=== PATIENT | male | born 2005 | race Caucasian/White ===

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

== ENCOUNTER 2025-01-30 20:44 | Emergency (ER) | payer MEDICAID, SELFPAY ==
[2025-01-30 20:50] VITALS: BP 150/95; PULSE 101; RESP 18; TEMP 36.9; O2SAT 98; BMI 41.3
--- NOTE | 2025-01-30 20:50 | XRR_ITS ---
PROCEDURE INFORMATION: Exam: XR Chest Exam date and time: 01/30/2025 9:08 PM Age: 19 years old Clinical indication: Other: Weakness and neurodeficit TECHNIQUE: Imaging protocol: Radiologic exam of the chest. Views: 1 view. COMPARISON: CR XR chest 1V [id number] 04/18/2023 2:04 PM FINDINGS: Lungs: Unremarkable. No consolidation. Pleural spaces: Unremarkable. No pleural effusion. No pneumothorax. Heart/Mediastinum: Unremarkable. No cardiomegaly. Bones/joints: Unremarkable. XR/XR chest 1V portable [id number] IMPRESSION: No acute findings.
--- NOTE | 2025-01-30 20:51 | CTR_ITS ---
PROCEDURE INFORMATION: Exam: CT Head Without Contrast Exam date and time: 01/30/2025 9:00 PM Age: 19 years old Clinical indication: Stroke-like symptoms; Generalized weakness; Additional info: Symptoms of acute stroke TECHNIQUE: Imaging protocol: Computed tomography of the head without contrast. Radiation optimization: All CT scans at this facility use at least one of these dose optimization techniques: automated exposure control; mA and/or kV adjustment per patient size (includes targeted exams where dose is matched to clinical indication); or iterative reconstruction. Other technique: STROKE PROTOCOL was implemented. COMPARISON: CT head wo con* [id number] 04/28/2021 11:49 PM RADIATION DOSE METRICS: Total DLP (mGy-cm): 1221.6 FINDINGS: Brain: Normal. No hemorrhage. Unremarkable white matter. No mass effect. Cerebral ventricles: No ventriculomegaly. Paranasal sinuses: Visualized sinuses are unremarkable. No fluid levels. Mastoid air cells: Visualized mastoid air cells are well aerated. Bones: Unremarkable. No acute fracture. Soft tissues: Unremarkable. CT/CT head thrombolytic [id number] IMPRESSION: No acute intracranial abnormality. ASSESSMENT: ASPECTS ([place] Stroke Program Early CT Score) is 10.
[2025-01-30 20:54] LABS: Glucose Point of Care 103 mg/dL (70-110)
--- NOTE | 2025-01-30 20:54 | W.ED.NEUROSD ---
HPI - Neuro Symptoms/Deficit General: Chief Complaint: Neuro Symptoms/Deficit Stated Complaint: Stroke Alert Time Seen by Provider: 01/30/25 20:50 History of Present Illness: Patient presents to the ER EMS for stroke alert. EMS stated patient was at a friend's house when he started feeling weird got in his truck went to his girlfriend's house. Which was about a mile down the road got there and did not was unable to move anything from the neck down. When EMS arrived there patient was unable move all extremities but did have spontaneous eye movement and was able to talk and answer questions. Patient denies any anticoagulation. Patient says he should be on blood pressure medicine but denies taking it. Patient denies any illegal substances or alcohol use. He does smoke cigarettes. He has never had a thing like this before. Related Data Home Medications ?Medication ?Instructions ?Recorded ?Confirmed acetaminophen 500 mg tablet 1,000 mg PO Q6H PRN Pain 04/18/23 08/29/24 Previous Rx's ?Medication ?Instructions ?Recorded inhalational spacing device #1 ea 04/21/20 (Aerochamber Plus Flow-Vu) azelastine 137 mcg (0.1 %) nasal 1 spray intranasal BID #30 mL 05/31/24 spray cetirizine 10 mg tablet (Wal-Zyr 10 mg PO DAILY #30 tabs 05/31/24 (cetirizine)) metformin 500 mg tablet,extended 1,000 mg (2 x 500 mg) PO DAILY #60 05/31/24 release 24 hr tabs Held on 08/29/24. Instructions: Patient No Longer Taking valsartan 40 mg tablet (Diovan) 40 mg PO DAILY #30 tabs 08/29/24 mometasone-formoterol HFA 100 2 puff inhalation Q12H #13 grams 12/06/24 mcg-5 mcg/actuation aerosol inhaler (Dulera) Allergies Allergy/AdvReac Type Severity Reaction Status Date / Time poison sumac extract Allergy ALGY-Hives Verified 08/29/24 13:00 fenofibrate (From Tricor) AdvReac Severe ADR-Nausea Verified 08/29/24 13:00 Review of Systems General: Reports: 10 or more systems reviewed and unremarkable except in HPI and below PFSH ED PFSH: Medical History Seasonal and perennial allergic rhinitis Metabolic syndrome BMI (body mass index), pediatric, 95-99% for age Family history of diabetes mellitus in paternal grandfather Surgical History No pertinent past surgical history Family History Grandfather CAD (coronary artery disease) Diabetes Father Diabetes Hypertension Family/Other Cancer Lung cancer Social History Smoking and tobacco/nicotine status: never used tobacco/nicotine Second hand smoke exposure: Yes Alcohol intake: never Substance/Drug Use: never Adopted: No Caregiver/support person: No Lives independently: No Household members: family Housing: House Marital status: Single Number of children: 0 Highest education level completed: High School Graduate service: No Current occupational status: student Do you think of yourself as: Straight/Heterosexual Current gender identity: Male Physical Exam Const: COMMON NORMALS: no acute distress, average body habitus, patient oriented x3, healthy appearing, alert and well nourished HENMT: COMMON NORMALS: normocephalic, atraumatic, hearing grossly normal bilaterally, external ears normal, Normal external nose present, moist oral mucous membranes and oropharynx normal HEAD & SCALP: normocephalic and atraumatic NOSE: Normal external nose present EXTERNAL EAR: Yes external ears normal Eye: COMMON NORMALS: Equal, round and reactive pupils present, EOMs intact bilaterally, conjunctivae normal and no scleral icterus CONJUNCTIVA: Yes conjunctivae normal PUPIL: Yes Equal, round and reactive pupils present Neck/C-Spine: COMMON NORMALS: no JVD Chest: COMMONS NORMALS: normal inspection of the chest and normal palpation of entire chest wall Resp: COMMON NORMALS: normal respiratory effort, No retractions, No use of accessory muscles and clear to auscultation bilaterally AUSCULTATION: clear to auscultation bilaterally Cardio: COMMON NORMALS: no JVD, regular rate, regular rhythm, S1 normal heart sound present, S2 normal heart sound present, No gallops present (Cardio), No clicks present (Cardio), No murmurs present (Cardio) and No rub (Cardio) RATE: regular rate RHYTHM: regular rhythm HEART SOUNDS: S1 normal heart sound present and S2 normal heart sound present GI: COMMON NORMALS: Normal to inspection, nondistended, normoactive bowel sounds present, Soft to palpation, non-tender, No hepatosplenomegaly present and no masses PALPATION: Yes Soft to palpation and Yes No hepatosplenomegaly present Neuro: COMMON NORMALS: patient oriented x3 SENSORIUM/ORIENTATION: Yes alert Course Vital Signs: Vital signs: Vital Signs Temperature 98.5 F 01/30/25 20:50 Pulse Rate 94 01/30/25 23:25 Respiratory Rate 23 H 01/30/25 23:25 Blood Pressure 136/100 01/30/25 23:25 Pulse Oximetry 96 01/30/25 23:25 Oxygen Delivery Me thod Room Air 01/30/25 21:55 MDM - Neuro Symptoms/Deficit Medical Decision Making Dr. Andres come down in ER to evaluate patient. He says it is unlikely stroke or Guillain-Mascorro? could be periodic paralysis. He did request a CT spine cervical and CTA of the chest. He would like him placed in the ICU underneath the hospitalist for observation. Medical Records I reviewed the patient's medical records. Lab Data I reviewed the patient's lab results. 01/30/25 20:49 01/30/25 20:49 Radiology Impressions Chest X-Ray 01/30/25 20:50 IMPRESSION: No acute findings. Head CT 01/30/25 20:51 IMPRESSION: No acute intracranial abnormality. ASSESSMENT: ASPECTS ([place] Stroke Program Early CT Score) is 10. ADDENDUM: 01/30/252124 Addendum: THIS REPORT CONTAINS FINDINGS THAT MAY BE CRITICAL TO PATIENT CARE. The findings were verbally communicated via telephone conference with Bertram Grossman at 9:23 PM CDT on 01/30/2025. The findings were acknowledged and understood. Head/Neck CTA 01/30/25 21:00 IMPRESSION: No large vessel stenosis or occlusion. IMPRESSION: No stenosis or occlusion. REFERENCES: NASCET CRITERIA. The degree of stenosis in the cervical segment of the internal carotid artery is based on NASCET criteria. Normal is no stenosis. Mild is less than 50% stenosis. Moderate is 50-69% stenosis. Severe is 70% to 99% stenosis. Total occlusion is no detectable patent lumen. Cervical Spine CT 01/30/25 21:49 IMPRESSION: No acute findings. Chest CTA 01/30/25 21:49 IMPRESSION: No evidence of pulmonary embolism. Laboratory Results WBC 9.47 10^3/uL (4.5-13.0) 01/30/25 20:49 RBC 5.03 10^6/uL (3.85-5.65) 01/30/25 20:49 Hgb 14.90 g/dL (13.2-15.6) 01/30/25 20:49 Hct 44.9 % (37-53) 01/30/25 20:49 MCV 89.3 fl (82-101) 01/30/25 20:49 MCH 29.6 pg (27-33) 01/30/25 20:49 MCHC 33.2 g/dL (30-55) 01/30/25 20:49 RDW 13.8 % (12.1-15.1) 01/30/25 20:49 Plt Count 228 10^3/cmm (157-399) 01/30/25 20:49 MPV 9.0 fL (7.4-10.4) 01/30/25 20:49 Neut % (Auto) 55.8 % 01/30/25 20:49 Lymph % (Auto) 30.7 % 01/30/25 20:49 [place] % (Auto) 9.2 % 01/30/25 20:49 Eos % (Auto) 3.7 % 01/30/25 20:49 Baso % (Auto) 0.4 % 01/30/25 20:49 Neut # (Auto) 5.28 10^3/uL (1.8-8.0) 01/30/25 20:49 Lymph # (Auto) 2.9 10^3/uL (1.5-6.5) 01/30/25 20:49 [place] # (Auto) 0.9 10^3/uL (0.2-0.9) 01/30/25 20:49 Eos # (Auto) 0.4 10^3/uL (0.0-0.8) 01/30/25 20:49 Baso # (Auto) 0.0 10^3/uL (0.0-0.1) 01/30/25 20:49 Nucleated RBC % (auto) 0 % 01/30/25 20:49 Nucleated RBCs # 0.0 /100WBC 01/30/25 20:49 ESR 1 mm/hr (0-10) 01/30/25 20:49 PT 13.30 SECONDS (12.1-14.9) 01/30/25 20:49 INR 0.95 (0.8-1.2) 01/30/25 20:49 APTT 29.4 SECONDS (23.9-36.7) 01/30/25 20:49 Sodium 138 mmol/L (136-145) 01/30/25 20:49 Potassium 4.2 mmol/L (3.5-5.1) 01/30/25 20:49 Chloride 101 mmol/L (98-107) 01/30/25 20:49 Carbon Dioxide 25 mmol/L (22-29) 01/30/25 20:49 Anion Gap 16.2 (5-19) 01/30/25 20:49 BUN 12 mg/dL (6-20) 01/30/25 20:49 Creatinine 0.9 mg/dL (0.7-1.2) 01/30/25 20:49 GFR Calculation 108.7 mL/min (90-130) 01/30/25 20:49 Glucose 93 mg/dL (65-115) 01/30/25 20:49 POC Glucose 103 mg/dL (70-110) 01/30/25 20:49 Calculated Osmolality 285 mOsm/kg (285-295) 01/30/25 20:49 Calcium 9.4 mg/dL (8.5-10.5) 01/30/25 20:49 Magnesium 2.0 mg/dL (1.7-2.2) 01/30/25 20:49 Total Bilirubin 0.3 mg/dL (0.15-1.2) 01/30/25 20:49 AST 18 U/L (0-40) 01/30/25 20:49 ALT 20 U/L (0-41) 01/30/25 20:49 Alkaline Phosphatase 117 U/L (40-130) 01/30/25 20:49 Troponin T Baseline < 6 ng/L (0-15) 01/30/25 20:49 Troponin T 120 Minute 6.16 ng/L (0-15) 01/30/25 23:08 Delta Troponin T 0.84442 ABS# (0-10) 01/30/25 23:08 C-Reactive Protein 3.0 mg/L (0.0-4.9) 01/30/25 20:49 Total Protein 7.5 g/dL (6.6-8.7) 01/30/25 20:49 Albumin 4.6 g/dL (3.5-5.2) 01/30/25 20:49 Globulin 2.9 g/dL (1.3-4.6) 01/30/25 20:49 TSH 1.47 uIU/mL (0.27-4.20) 01/30/25 20:49 Urine Color Yellow (Yellow) 01/30/25 21:18 Urine Appearance Clear (CLEAR) 01/30/25 21:18 Urine pH 7 (5-7) 01/30/25 21:18 Ur Specific [place] 1.005 (1.005-1.030) 01/30/25 21:18 Urine Protein Neg (Negative) 01/30/25 21:18 Urine Glucose (UA) Norm (Normal) 01/30/25 21:18 Urine Ketones Negative (Negative) 01/30/25 21:18 Urine Blood Neg (Negative) 01/30/25 21:18 Urine Nitrate Negative (Negative) 01/30/25 21:18 Urine Bilirubin Neg (Negative) 01/30/25 21:18 Urine Urobilinogen Norm mg/dL (Negative) 01/30/25 21:18 Ur Leukocyte Esterase Negative (Negative) 01/30/25 21:18 Amorphous Sediment Not Reportable 01/30/25 21:18 Salicylates < 0.3 mg/dL (3-10) L 01/30/25 20:49 Urine Opiates Screen Negative ng/mL (Negative) 01/30/25 21:18 Acetaminophen < 5.0 ug/mL (10-30) L 01/30/25 20:49 Ur Barbiturates Screen Negative ng/mL (Negative) 01/30/25 21:18 Ur Phencyclidine Scrn Negative ng/mL (Negative) 01/30/25 21:18 Ur Amphetamines Screen Negative ng/mL (Negative) 01/30/25 21:18 U Benzodiazepines Scrn Negative ng/mL (Negative) 01/30/25 21:18 Urine Cocaine Screen Negative ng/mL (Negative) 01/30/25 21:18 U Marijuana (THC) Screen Negative ng/mL (Negative) 01/30/25 21:18 Ethyl Alcohol < 10 mg/dL (0-10) 01/30/25 20:49 All radiology interpretation(s) finalized by discharge Discharge Plan Discharge Patient Disposition: Admitted As Inpatient Clinical Impression: Paralysis Chest pain Qualifiers: Chest pain type: unspecified Qualified Code(s): R07.9 - Chest pain, unspecified Hypertension Qualifiers: Hypertension type: unspecified Qualified Code(s): I10 - Essential (primary) hypertension Condition: Stable Coding Level of Care Code ED Inside Sales Associate for Nguyen Kay
[2025-01-30 21:00] LABS: Basophils % 0.4 %; Eosinophils # 0.4 10^3/uL (0.0-0.8); Eosinophils % 3.7 %; Hematocrit 44.9 % (37-53); Lymphocytes # 2.9 10^3/uL (1.5-6.5); Lymphocytes % 30.7 %; Mean Corpuscular HGB Conc 33.2 g/dL (30-55); Mean Corpuscular Hemoglobin 29.6 pg (27-33); Mean Corpuscular Volume 89.3 fl (82-101); Monocytes # 0.9 10^3/uL (0.2-0.9); Monocytes % 9.2 %; Neutrophils # 5.28 10^3/uL (1.8-8.0); Neutrophils % 55.8 %; Nucleated Red Blood Cells % 0 %; Platelet Count 228 10^3/cmm (157-399); Red Blood Count 5.03 10^6/uL (3.85-5.65); Red Cell Distribution Width 13.8 % (12.1-15.1); White Blood Count 9.47 10^3/uL (4.5-13.0)
--- NOTE | 2025-01-30 21:00 | CTR_ITS ---
PROCEDURE INFORMATION: Exam: CTA Head With Contrast, Arteriography Exam date and time: 01/30/2025 9:00 PM Age: 19 years old Clinical indication: Weakness; Additional info: Code stroke TECHNIQUE: Imaging protocol: Computed tomographic angiography of the head with contrast. Exam focused on the arteries. 3D rendering (Not supervised by radiologist): MIP and/or 3D reconstructed images were created by the technologist. Radiation optimization: All CT scans at this facility use at least one of these dose optimization techniques: automated exposure control; mA and/or kV adjustment per patient size (includes targeted exams where dose is matched to clinical indication); or iterative reconstruction. Contrast material: OMNIPAQUE 350; Contrast volume: 100 ml; Contrast route: INTRAVENOUS (IV); COMPARISON: CT head wo con* [id number] 04/28/2021 11:49 PM RADIATION DOSE METRICS: Total DLP (mGy-cm): 487.3 FINDINGS: ANTERIOR CIRCULATION: Right internal carotid artery: Intracranial segment is patent with no significant stenosis. No aneurysm. Right middle cerebral artery: No occlusion or significant stenosis. No aneurysm. Right anterior cerebral artery: No occlusion or significant stenosis. No aneurysm. Left internal carotid artery: Intracranial segment is patent with no significant stenosis. No aneurysm. Left middle cerebral artery: No occlusion or significant stenosis. No aneurysm. Left anterior cerebral artery: No occlusion or significant stenosis. No aneurysm. POSTERIOR CIRCULATION: Right vertebral artery: No occlusion or significant stenosis. No aneurysm. Left vertebral artery: No occlusion or significant stenosis. No aneurysm. Basilar artery: No occlusion or significant stenosis. No aneurysm. Right posterior cerebral artery: No occlusion or significant stenosis. No aneurysm. Left posterior cerebral artery: No occlusion or significant stenosis. No aneurysm. Brain: No definite mass, mass effect, or midline shift. Cerebral ventricles: No ventriculomegaly. Bones/joints: Unremarkable. No acute fracture. Soft tissues: Unremarkable. PROCEDURE INFORMATION: Exam: CTA Neck With Contrast Exam date and time: 01/30/2025 9:00 PM Age: 19 years old Clinical indication: Weakness; Additional info: Code stroke TECHNIQUE: Imaging protocol: Computed tomographic angiography of the neck with contrast. Exam focused on the cervical segments of the vasculature. 3D rendering (Not supervised by radiologist): MIP and/or 3D reconstructed images were created by the technologist. Radiation optimization: All CT scans at this facility use at least one of these dose optimization techniques: automated exposure control; mA and/or kV adjustment per patient size (includes targeted exams where dose is matched to clinical indication); or iterative reconstruction. Contrast material: OMNIPAQUE 350; Contrast volume: 100 ml; Contrast route: INTRAVENOUS (IV); COMPARISON: CT cervical spin wo con* [id number] 04/28/2021 11:52 PM RADIATION DOSE METRICS: Total DLP (mGy-cm): 487.3 FINDINGS: Right common carotid artery: No stenosis. No dissection or occlusion. Right internal carotid artery: No stenosis of the extracranial segment. No dissection or occlusion. Right external carotid artery: No occlusion or stenosis of the origin. Left common carotid artery: No stenosis. No dissection or occlusion. Left internal carotid artery: No stenosis of the extracranial segment. No dissection or occlusion. Left external carotid artery: No occlusion or stenosis of the origin. Right vertebral artery: No stenosis. No dissection or occlusion. Left vertebral artery: No stenosis. No dissection or occlusion. Soft tissues: Normal. No significant soft tissue swelling. Bones/joints: No acute fracture. CT/CT angio headneck* [id number] IMPRESSION: No large vessel stenosis or occlusion. IMPRESSION: No stenosis or occlusion. REFERENCES: NASCET CRITERIA. The degree of stenosis in the cervical segment of the internal carotid artery is based on NASCET criteria. Normal is no stenosis. Mild is less than 50% stenosis. Moderate is 50-69% stenosis. Severe is 70% to 99% stenosis. Total occlusion is no detectable patent lumen.
[2025-01-30 21:01] LABS: Erythrocyte Sedimentation Rate 1 mm/hr (0-10)
[2025-01-30] MEDS: iohexol 350 mg/mL 500 mL Btl (per mL) IV ×2 (21:03→22:16)
[2025-01-30] MEDS: naloxone 0.4 mg/ml SDV IVP (21:15)
--- NOTE | 2025-01-30 21:16 | ECG_ITS ---
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 Measurements Intervals [place] Rate: 115 P: 54 CT: 140 QRS: 78 QRSD: 93 T: 44 QT: 312 QTc: 433 Interpretive Statements SINUS TACHYCARDIA ABNORMAL RHYTHM ECG INTERPRETATION BASED ON A DEFAULT AGE OF 40 YEARS Compared to ECG 04/18/2023 13:57:46 Sinus rhythm no longer present Electronically Signed On 01-30-2025 21:30:25 CDT by Sebastien Blake M.D. [email or web address]
[2025-01-30 21:17] LABS: Troponin(5th) Baseline < 6 ng/L (0-15)
[2025-01-30 21:32] LABS: Add Urine Microscopic? NO
[2025-01-30 21:33] LABS: Urine Appearance Clear (CLEAR); Urine Color Yellow (Yellow); pH Urine 7 (5-7)
[2025-01-30 21:34] LABS: Bilirubin Urine Neg (Negative); Blood Urine Neg (Negative); Glucose Urine UA Norm (Normal); Ketones Urine Negative (Negative); Leukocyte Esterase Urine Negative (Negative); Nitrate Urine Negative (Negative); Protein Urine Neg (Negative); Specific Gravity, Urine 1.005 (1.005-1.030); Urobilinogen Urine Norm (Negative)
[2025-01-30 21:36] LABS: Charge for UA Resulting for Rev
[2025-01-30 21:39] LABS: Alanine Aminotransferase 20 U/L (0-41); Albumin Level 4.6 g/dL (3.5-5.2); Alkaline Phosphatase 117 U/L (40-130); Aspartate Amino Transferase 18 U/L (0-40); Blood Urea Nitrogen 12 mg/dL (6-20); Calcium 9.4 mg/dL (8.5-10.5); Carbon Dioxide 25 mmol/L (22-29); Chloride 101 mmol/L (98-107); Creatinine Clr Calc Pharmacy 174.0727; Globulin 2.9 g/dL (1.3-4.6); Glomerular Filtration Rate 108.7 mL/min (90-130); Glucose 93 mg/dL (65-115); Osmolality Calculated 285 mOsm/kg (285-295); Sodium 138 mmol/L (136-145); Thyroid Stimulating Hormone 1.47 uIU/mL (0.27-4.20); Total Bilirubin 0.3 mg/dL (0.15-1.2); Total Protein 7.5 g/dL (6.6-8.7)
[2025-01-30 21:40] LABS: INR 0.95 (0.8-1.2)
[2025-01-30 21:41] LABS: Acetaminophen < 5.0 ug/mL (10-30); Alcohol Level < 10 mg/dL (0-10); Partial Thromboplastin Time 29.4 SECONDS (23.9-36.7); Salicylate < 0.3 mg/dL (3-10)
[2025-01-30 21:43] LABS: Amphetamines Screen Urine Negative (Negative); Barbiturates Screen Urine Negative (Negative); Benzodiazepines Screen Urine Negative (Negative); Cocaine Screen Urine Negative (Negative); Opiate Screen Urine Negative (Negative); PCP Screen Urine Negative (Negative); THC Screen Urine Negative (Negative)
--- NOTE | 2025-01-30 21:49 | CTR_ITS ---
PROCEDURE INFORMATION: Exam: CTA Chest With Contrast Exam date and time: 01/30/2025 10:13 PM Age: 19 years old Clinical indication: Pain; Chest pressure; Additional info: Chest pain TECHNIQUE: Imaging protocol: Computed tomographic angiography of the chest with contrast. Exam focused on the arteries. 3D rendering (Not supervised by radiologist): MIP and/or 3D reconstructed images were created by the technologist. Radiation optimization: All CT scans at this facility use at least one of these dose optimization techniques: automated exposure control; mA and/or kV adjustment per patient size (includes targeted exams where dose is matched to clinical indication); or iterative reconstruction. Contrast material: OMNI 350; Contrast volume: 100 ml; Contrast route: INTRAVENOUS (IV); COMPARISON: CR (CHEST, ) 01/30/2025 9:08 PM RADIATION DOSE METRICS: Total DLP (mGy-cm): 486.7 FINDINGS: Limitations: Study somewhat limited due to streak artifact created by the patient being scanned with the arms at the sides. Pulmonary arteries: Normal. No pulmonary emboli. Aorta: Unremarkable. No aortic aneurysm. No aortic dissection. Lungs: Unremarkable. No consolidation. No masses. Pleural spaces: Unremarkable. No pneumothorax. No pleural effusion. Heart: Unremarkable. No cardiomegaly. No pericardial effusion. Lymph nodes: Unremarkable. No enlarged lymph nodes. Bones/joints: Unremarkable. No acute fracture. Soft tissues: Unremarkable. CT/CT angio chest PE protcl [id number] IMPRESSION: No evidence of pulmonary embolism.
--- NOTE | 2025-01-30 21:49 | CTR_ITS ---
PROCEDURE INFORMATION: Exam: CT Cervical Spine Without Contrast Exam date and time: 01/30/2025 10:13 PM Age: 19 years old Clinical indication: Neck pain TECHNIQUE: Imaging protocol: Computed tomography of the cervical spine without contrast. Radiation optimization: All CT scans at this facility use at least one of these dose optimization techniques: automated exposure control; mA and/or kV adjustment per patient size (includes targeted exams where dose is matched to clinical indication); or iterative reconstruction. COMPARISON: CT cervical spin wo con* [id number] 04/28/2021 11:52 PM RADIATION DOSE METRICS: Total DLP (mGy-cm): 634.8 FINDINGS: Bones: No acute fracture. Normal alignment. No significant disc bulge or herniation. No severe spinal canal stenosis. No significant neural foraminal narrowing. Lungs: Lung apices are normal. Soft tissues: Unremarkable. CT/CT cervical spin wo con* [id number] IMPRESSION: No acute findings.
[2025-01-30 21:55] VITALS: BP 143/94; PULSE 101; RESP 25; O2SAT 97
--- NOTE | 2025-01-30 21:56 | P.CONIM_ITS ---
Providers/Reason For Consult 2 Consulting Physician/Specialty*: Gautam Andres MD neurology and epilepsy Reason for Consult*: Acute care stroke alert emergency department room #12 Primary Care Provider: LUCAS Ness History of Present Illness History of Present Illness Davian Torres Jr is a 19 year old male with a history of hypertension and asthma. According to the patient's girlfriend the patient has been noncompliant with his antihypertensive medication. The patient stated that on 01/30/2025 he was helping a friend move to another house. The patient stated that he was helping carry small light boxes and he began experiencing chest pain. The patient stated that he went to his truck and was trying to drive but he began experiencing more chest pain followed by blurred vision and loss of consciousness for 1 to 2 minutes followed by postevent severe neck pain and paralysis involving his arms and legs and slurred speech. As a result the patient was brought to [facility] emergency department. The patient's mother stated that she witnessed her son being slumped over in his truck and was unconscious. Stroke alert was initiated at 8:07 PM reporting ETA 20 minutes. In the emergency room the patient is alert and speech is clear. Extraocular movements intact. Pupils 4 mm and reactive to light. Patient reporting neck pain and ability to move his toes but not his arms or proximal legs or distal legs. Deep tendon reflexes at least 1+ in upper extremities and 2+ at the patellas bilaterally. Plantar responses flexor bilaterally. Sensory examination intact to touch in his hands and feet. Neurological evaluation suggestive of periodic paralysis but will assess for other causes. Metabolic lab for CBC, comprehensive metabolic panel, TSH, magnesium, and urinalysis unrevealing. The patient reported similar symptoms that were milder in 2022. Stat noncontrast head CT 01/30/[address] angiogram of the head and neck 01/30/2025 negative for large vessel occlusion Cervical CT scan 01/30/2025 pending at the time of this dictation Point of contact glucose 103 NIH stroke score = 8 (secondary to inability to move arms or legs bilaterally) Drug allergies: Poison sumac extract which resulted in hives Tricor which resulted in nausea Tums which resulted in GI upset Current medications: Tylenol extra strength 1000 mg p.o. every 6 hours as needed for pain Azelastine 137 mcg nasal spray 1 spray intranasally twice a day Zyrtec 10 mg p.o. daily Metformin XR 1000 mg p.o. daily Valsartan 40 mg p.o. daily Mometasone/formotel 100 mcg / 5 mcg accusation 2 puffs every 12 hours Past medical history: Asthma Essential hypertension Triglycerides Seasonal allergies Near syncope Chest pain Habits: The patient smokes 1/2 pack/day. He denied other drug use. 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 Review of Systems 2 General: Reports: 10 or more systems reviewed and unremarkable except in HPI and below Const: Reports: other (Increased thirst) Card: Reports: chest pain, syncope and pre-syncope Medications/Allergies Home Medications ?Medication ?Instructions ?Recorded ?Confirmed ?Last Taken ?Type inhalational spacing device #1 ea 04/21/20 08/29/24 Un known Rx (Aerochamber Plus Flow-Vu) acetaminophen 500 mg tablet 1,000 mg PO Q6H PRN Pain 0 04/18/23 08/29/24 Unknown History azelastine 137 mcg (0.1 %) nasal 1 spray intranasal BI D #30 mL 05/31/24 08/29/24 Unknown Rx spray cetirizine 10 mg tablet (Wal-Zyr 10 mg PO DAILY #30 ta bs 05/31/24 08/29/24 Unknown Rx (cetirizine)) metformin 500 mg tablet,extended 1,000 mg (2 x 500 mg) PO DAILY #60 05/31/24 08/29/24 Unknown Rx release 24 hr tabs Held on 08/29/24. Instructions: Patient No Longer Taking valsartan 40 mg tablet (Diovan) 40 mg PO DAILY #30 tab s 08/29/24 08/29/24 Unknown Rx mometasone-formoterol HFA 100 2 puff inhalation Q12H # 13 grams 12/06/24 Unknown Rx mcg-5 mcg/actuation aerosol inhaler (Dulera) Allergies Allergy/AdvReac Type Severity Reaction Status Date / Time poison sumac extract Allergy ALGY-Hives Verified 08/29/24 13:00 fenofibrate (From Tricor) AdvReac Severe ADR-Nausea Verified 08/29/24 13:00 PFSH Acute 2 PFSH: Medical History Seasonal and perennial allergic rhinitis Metabolic syndrome BMI (body mass index), pediatric, 95-99% for age Family history of diabetes mellitus in paternal grandfather Surgical History No pertinent past surgical history Family History Grandfather CAD (coronary artery disease) Diabetes Father Diabetes Hypertension Family/Other Cancer Lung cancer Social History Smoking and tobacco/nicotine status: never used tobacco/nicotine Second hand smoke exposure: Yes Alcohol intake: never Substance/Drug Use: never Adopted: No Caregiver/support person: No Lives independently: No Household members: family Housing: House Marital status: Single Number of children: 0 Highest education level completed: High School Graduate service: No Current occupational status: student Do you think of yourself as: Straight/Heterosexual Current gender identity: Male Vitals/I&O/Wt Last Vital Signs Temp 98.5 F 01/30/25 20:50 Pulse 101 H 01/30/25 21:55 Resp 25 H 01/30/25 21:55 BP 143/94 01/30/25 21:55 Pulse Ox 97 01/30/25 21:55 O2 Del Method Room Air 01/30/25 21:55 01/30/25 01/30/25 01/30/25 06:59 14:59 22:59 Intake Total 0 / 0 Balance 0 / 0 Weight last 48 hrs Weight 280 lb Physical Exam 2 Narrative: The patient is alert and oriented x 3. Speech is fluent. Head atraumatic. Neck patient reported neck pain with active range of motion. Pupils 4 mm round reactive to light and accommodation. Extraocular movements intact. Visual kamara appear to be full via confrontation. There were no nystagmus. Motor testing: The patient stated he cannot move his arms or legs but can wiggle his toes. Deep tendon reflexes at least 1+ in upper extremities and 2+ at the patellas. Plantar responses flexor bilaterally there was no clonus. Sensory examination intact to touch in his upper and lower extremities bilaterally. Throat clear. Lungs clear. Heart regular rhythm and rate. Extremities were negative for cyanosis. Data 01/30/25 20:49 01/30/25 20:49 A&P Assessment and plan (1) Paralysis: Impression: 1. Acute onset of chest pain associated with blurred vision and loss of consciousness followed by postevent neck pain and paralysis of upper and lower extremities. 2. Essential hypertension 3. Asthma 4. History of increased thirst Plan: 1. Recommend obtaining CT of the cervical spine to assess for central canal stenosis and to assess for cervical cord infarct 2. Agree with obtaining CT angiogram of the chest to assess for thoracic or abdominal aortic aneurysm 3. Recommend admitting to the ICU to monitor patient's upper and lower extremity paralysis suggestive of possible hypokalemic and or hyperkalemia periodic paralysis 4. Recommend cardiology evaluation for chest pain 5. Neurochecks and vital signs per ICU protocol 6. Recommend obtaining MRI of the cervical spine with and without contrast on 01/31/2025 to further assess for central canal stenosis as well as to assess for vascular etiology for arm and leg weakness and neck pain 7. Occupational Therapy, physical therapy and speech therapy consults 8. Fall precautions 9. Recommend starting IV fluids normal saline at 75 cc/h 10. Monitor bowels and urine functions (2) Chest pain: (3) Syncope: (4) Neck pain: PDMP PDMP Reviewed: Not Reviewed Consult Attestations 2 Medical Necessity Statement: The patient was evaluated by neurology for syncope and neck pain and paralysis. Stroke alert was also initiated prior to the patient presenting to [facility] emergency department Coding Level of Care Code 52743 Diagnoses Paralysis G83.9 Chest pain R07.9 Syncope R55 Neck pain M54.2
[2025-01-30 21:58] LABS: Anion Gap 16.2 (5-19); Potassium 4.2 mmol/L (3.5-5.1)
[2025-01-30 22:07] VITALS: BP 136/84; PULSE 97; RESP 18; O2SAT 98
--- NOTE | 2025-01-30 22:48 | ECG_ITS ---
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 Measurements Intervals [place] Rate: 89 P: 51 [place]: 175 QRS: 72 QRSD: 90 T: 43 QT: 341 QTc: 416 Interpretive Statements SINUS RHYTHM Compared to ECG 01/30/2025 21:16:03 Sinus tachycardia no longer present Electronically Signed On 02-02-2025 13:32:36 CDT by Sebastien Blake M.D. [email or web address]
[2025-01-30 23:25] VITALS: BP 136/100; PULSE 94; RESP 23; O2SAT 96
[2025-01-30 23:33] LABS: Troponin 5 2HR 6.16 ng/L (0-15); Troponin 5 2HR Delta 0.16001 ABS# (0-10)
--- NOTE | 2025-01-31 00:12 | P.HP_ITS ---
Providers/Chief Complaint 2 Primary Care Provider: Coreen Suarez, LUCAS Chief Complaint: Stroke Alert History of Present Illness Davian Torres Jr is a 19 year old male with history of hypertension, noncompliant, presented to the hospital for concerns related to chest pain and inability to move his extremities. 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 Code stroke was called, NIH was 8 initially as per neurologist at the time of my evaluation it is 0. Patient is able to move all extremities, no signs of confusion, patient is experiencing periodic left-sided headache, endorsing history of migraine. Patient is not endorsing drinking alcohol or smoking or recreational drugs. Workup so far has been negative. CT head CTA head and neck unremarkable. Neurologist recommended admission observation overnight for ruling out periodic paralysis. His potassium is normal for now. His EKG showing sinus changes to LVH. Review of Systems 2 Eyes: Denies: change in vision ENMT: Denies: throat pain Card: Reports: chest pain Resp: Denies: dyspnea GI: Denies: abdominal pain : Denies: flank pain Medications/Allergies Home Medications ?Medication ?Instructions ?Recorded ?Confirmed ?Last Taken ?Type inhalational spacing device #1 ea 04/21/20 08/29/24 Un known Rx (Aerochamber Plus Flow-Vu) acetaminophen 500 mg tablet 1,000 mg PO Q6H PRN Pain 0 04/18/23 08/29/24 Unknown History azelastine 137 mcg (0.1 %) nasal 1 spray intranasal BI D #30 mL 05/31/24 08/29/24 Unknown Rx spray cetirizine 10 mg tablet (Wal-Zyr 10 mg PO DAILY #30 ta bs 05/31/24 08/29/24 Unknown Rx (cetirizine)) metformin 500 mg tablet,extended 1,000 mg (2 x 500 mg) PO DAILY #60 05/31/24 08/29/24 Unknown Rx release 24 hr tabs Held on 08/29/24. Instructions: Patient No Longer Taking valsartan 40 mg tablet (Diovan) 40 mg PO DAILY #30 tab s 08/29/24 08/29/24 Unknown Rx mometasone-formoterol HFA 100 2 puff inhalation Q12H # 13 grams 12/06/24 Unknown Rx mcg-5 mcg/actuation aerosol inhaler (Dulera) Allergies Allergy/AdvReac Type Severity Reaction Status Date / Time poison sumac extract Allergy ALGY-Hives Verified 08/29/24 13:00 fenofibrate (From Tricor) AdvReac Severe ADR-Nausea Verified 08/29/24 13:00 PFSH Acute 2 PFSH: Medical History Seasonal and perennial allergic rhinitis Metabolic syndrome BMI (body mass index), pediatric, 95-99% for age Family history of diabetes mellitus in paternal grandfather Surgical History No pertinent past surgical history Family History Grandfather CAD (coronary artery disease) Diabetes Father Diabetes Hypertension Family/Other Cancer Lung cancer Social History Smoking and tobacco/nicotine status: never used tobacco/nicotine Second hand smoke exposure: Yes Alcohol intake: never Substance/Drug Use: never Adopted: No Caregiver/support person: No Lives independently: No Household members: family Housing: House Marital status: Single Number of children: 0 Highest education level completed: High School Graduate service: No Current occupational status: student Do you think of yourself as: Straight/Heterosexual Current gender identity: Male Vitals/I&O/Wt Last Vital Signs Temp 98.5 F 01/30/25 20:50 Pulse 94 01/30/25 23:25 Resp 23 H 01/30/25 23:25 BP 136/100 01/30/25 23:25 Pulse Ox 96 01/30/25 23:25 O2 Del Method Room Air 01/30/25 21:55 01/30/25 01/30/25 01/31/25 14:59 22:59 06:59 Intake Total 0 / 0 Balance 0 / 0 Weight last 48 hrs Weight 127.006 kg Physical Exam 2 Narrative: Awake and alert GCS 15 NIH 0 S1, S2 LVH related changes noted on telemetry Normotensive Morbidly obese Unkept appearance No active signs of stroke No sign of meningitis No active headache EOMI, PERRLA Skin is flushed, suntanned No significant edema On room air Data 01/30/25 20:49 01/30/25 20:49 A&P Assessment and plan (1) Chest pain: (2) Hypertension: Qualifiers: Hypertension type: unspecified Qualified Code(s): I10 - Essential (primary) hypertension (3) Metabolic syndrome: (4) Paralysis: (5) Syncope: Plan Inability to move extremities Syncope with chest pain NIH 0 at the time of my evaluation No sign of meningitis or stroke CTA head neck unremarkable CT head unremarkable Neurologist recommended cervical spine MRI Patient complaining of migraine related headache complex migraine? No signs of temporal arteritis Patient has metabolic syndrome, has not taken his medication for hypertension, LVH related EKG changes noted Requested echo, B12, hemoglobin A1c and lipid profile Continue valsartan Patient does not need ST, able to move all of his extremities, and pretty sure he will be able to go home in next 24 to 48 hours if MRI cervical spine is negative Will keep him on cardiac diet DVT prophylaxis added Full code PDMP PDMP Reviewed: Not Reviewed Attestations 2 Medical Necessity Statement*: Anticipating discharge within 24 to 48 hours Diagnoses Chest pain R07.9 Hypertension I10 Hypertension type: unspecified Metabolic syndrome E88.810 Paralysis G83.9 Syncope R55
[2025-01-31 00:13] VITALS: BP 126/73; PULSE 83; RESP 15; O2SAT 98
[2025-01-31 01:20] LABS: Cholesterol 162 mg/dL (0-200); HDL Cholesterol 30 mg/dL (60-100); LDL Cholesterol Calculated 75 mg/dL (50-170); Triglycerides 287 mg/dL (0-150)
[2025-01-31 01:30] LABS: Prolactin 6.14 ng/mL (4.0-15.2)
[2025-01-31 01:36] LABS: Procalcitonin 0.04 ng/mL (0-0.5); Vitamin B12 244 pg/mL (232-1245)
[2025-01-31 01:38] LABS: Estmated Average Glucose 94; Hemoglobin A1C 4.9 % (4.0-6.0)
== END 2025-01-31 02:06 | disposition left against medical advice (07) ==
PROVIDERS: Emergency Provider Emergency Medicine; PCP Nurse Practitioner; Visit Provider Internal Medicine
DX: G83.9 Paralytic syndrome, unspecified (principal); R07.9 Chest pain, unspecified; I10 Essential (primary) hypertension
CPT/HCPCS: 36415; 36416; 70450; 70496; 70498; 71045; 71275; 72125; 80053; 80061; 80306; 80307; 81003; 82607; 82962; 83036; 83735; 84145; 84146; 84443; 84484; 85025; 85610; 85651; 85730; 86140; 93005; 96374; 99285; J2310

== ENCOUNTER → 2025-02-06 10:57 | Outpatient (BNVA) | payer MEDICAID, SELFPAY | PROVIDERS: PCP Nurse Practitioner; Visit Provider Nurse Practitioner | DX: I10 Essential (primary) hypertension (principal) | CPT/HCPCS: 80053; 80061 ==

== ENCOUNTER → 2025-08-29 10:10 | Outpatient (BNVA) | payer MEDICAID, SELFPAY | PROVIDERS: PCP Nurse Practitioner; Visit Provider Clinical Nurse Specialist Adult Health | DX: M25.562 Pain in left knee (principal); M25.462 Effusion, left knee | CPT/HCPCS: 73562 ==